=== PATIENT | female | born 1995 | race Caucasian/White ===

== ENCOUNTER → 2019-11-05 | Outpatient (CLI) | payer OTHER ==
[2019-11-05 13:23] LABS: HEMATOCRIT 37.9 % (37.0-47.0); MEAN CELL VOLUME 76.7 fl (81.0-99.0); MEAN CORPUSCULAR HGB 22.9 pg (27.0-31.0); MEAN CORPUSCULAR HGB CONC 29.8 g/dl (33.0-37.0); MEAN PLATELET VOLUME 8.6 fl (9.6-12.3); PLATELET COUNT AUTOMATED 612 10*3/uL (130-400); RED BLOOD COUNT 4.94 10*6/uL (4.10-5.10); RED CELL DISTRI WIDTH 14.4 % (0-14.5); WHITE BLOOD COUNT 16.1 10*3/uL (4.8-10.8)
[2019-11-05 13:39] LABS: PLATELET SUFFICIENCY HIGH (NORMAL); POLYCHROMASIA SLIGHT; TOTAL CELLS COUNTED 100 #CELLS
[2019-11-05 13:40] LABS: MICROCYTOSIS SLIGHT; TOXIC GRANULATION SLIGHT
[2019-11-06 12:09] LABS: HEP B CORE AB, IGM Negative (Negative); HEPATITIS B SURFACE AG Negative (Negative); HEPATITIS C VIRUS ANTIBODY <0.1 s/co (0.0-0.9)
== END | disposition home or self-care (01) ==
LOC: LAB 12:21
PROVIDERS: Family Medicine
DX: D72.829 Elevated white blood cell count, unspecified (principal)

== ENCOUNTER → 2019-12-07 | Outpatient (CLI) | payer OTHER | END | disposition home or self-care (01) | LOC: CT 15:40 | PROVIDERS: ATTEND Family Medicine | DX: R10.84 Generalized abdominal pain (principal) ==

== ENCOUNTER → 2019-12-31 | Outpatient (CLI) | payer OTHER | END | disposition home or self-care (01) | LOC: LAB 12:25 | PROVIDERS: ATTEND Internal Medicine Gastroenterology | DX: R19.7 Diarrhea, unspecified (principal) ==

== ENCOUNTER 2022-04-14 11:11 | Emergency (ER) | payer OTHER ==
[~2022-04-14] VITALS: Wt 88.5 kg
[2022-04-14 12:03] LABS: HEMATOCRIT 42.9 % (37.0-47.0); MEAN CELL VOLUME 92.1 fl (81.0-99.0); MEAN CORPUSCULAR HGB 30.9 pg (27.0-31.0); MEAN CORPUSCULAR HGB CONC 33.6 g/dl (33.0-37.0); MEAN PLATELET VOLUME 9.7 fl (9.6-12.3); PLATELET COUNT AUTOMATED 298 10*3/uL (130-400); RED BLOOD COUNT 4.66 10*6/uL (4.10-5.10); RED CELL DISTRI WIDTH 12.2 % (0-14.5); WHITE BLOOD COUNT 16.7 10*3/uL (4.8-10.8)
[2022-04-14 12:04] LABS: MANUAL DIFF REFLEX YES
[2022-04-14 12:14] LABS: ALKALINE PHOSPHATASE 55 U/L (46-116); BUN 6 mg/dl (9-23); CHLORIDE 102 mmol/L (98-107); LIPASE 47 U/L (12-53); SGPT/ALT 50 U/L (10-49); TOTAL PROTEIN 7.6 gm/dL (6.0-8.0)
[2022-04-14 12:34] LABS: TOTAL CELLS COUNTED 100 #CELLS
[2022-04-14 12:35] LABS: PLATELET SUFFICIENCY NORMAL (NORMAL)
[2022-04-14 13:01] LABS: BILIRUBIN 1+ (Negative); BLOOD Negative (Negative); CLARITY Cloudy (Clear); COLOR Dark Yellow (Yellow); GLUCOSE Negative (Negative); KETONE Trace (Negative); LEUKO ESTERASE 1+ (Negative); NITRITE Negative (Negative); PH 5.5 (4.5-8.0); SPECIFIC GRAVITY >= 1.030 (1.001-1.030)
[2022-04-14 13:28] LABS: BACTERIA 2+; EPITHELIAL CELLS 16-20; MUCOUS 1+
[2022-04-14] MEDS ORDERED: PERCOCET 5-3251 EACH PO (17:42)
[2022-04-14] MEDS ORDERED: Ondansetron4 MG PO (17:42)
== END 2022-04-14 17:57 | disposition home or self-care (01) ==
LOC: ED 11:11
PROVIDERS: Emergency Medicine; Student in an Organized Health Care Education/Training Program
DX: R11.2 Nausea with vomiting, unspecified (principal); N83.201 Unspecified ovarian cyst, right side

== ENCOUNTER 2023-04-24 16:28 | Emergency (ER) | payer OTHER ==
[~2023-04-24] VITALS: Ht 172.7 cm; Wt 81.6 kg
[~2023-04-24 16:28] MED LIST: Ondansetron4 MG PO; PERCOCET 5-3251 EACH PO
[2023-04-24] MEDS ORDERED: MERCAPTOPURINE50 M1 PO (16:52)
[2023-04-24 17:59] LABS: RBC TNTC rbc/hpf (0-2)
[2023-04-24 18:02] LABS: BILIRUBIN Negative (Negative); BLOOD 3+ (Negative); CLARITY Turbid (Clear); COLOR Orange (Yellow); GLUCOSE Negative (Negative); KETONE Negative (Negative); LEUKO ESTERASE 1+ (Negative); NITRITE Negative (Negative); SPECIFIC GRAVITY >= 1.030 (1.001-1.030); UROBILINOGEN 0.2 E.U./dl (0.0-1.0)
[2023-04-24 18:31] LABS: BASO % 0.3 % (0.0-1.0); EOS # 0.1 10*3/uL (0.0-0.4); EOS % 1.1 % (1.0-4.0); HEMATOCRIT 39.1 % (37.0-47.0); LYMPH # 1.6 10*3/uL (1.3-4.4); LYMPH % 14.3 % (27.0-41.0); MEAN CELL VOLUME 90.3 fl (81.0-99.0); MEAN CORPUSCULAR HGB 28.6 pg (27.0-31.0); MEAN CORPUSCULAR HGB CONC 31.7 g/dl (33.0-37.0); MEAN PLATELET VOLUME 9.5 fl (9.6-12.3); MONO # 0.6 10*3/uL (0.1-1.0); MONO % 5.2 % (3.0-9.0); NEUT % 78.5 % (47.0-73.0); PLATELET COUNT AUTOMATED 336 10*3/uL (130-400); RED BLOOD COUNT 4.33 10*6/uL (4.10-5.10); RED CELL DISTRI WIDTH 13.1 % (0-14.5); WHITE BLOOD COUNT 11.4 10*3/uL (4.8-10.8)
[2023-04-24 18:51] LABS: ALKALINE PHOSPHATASE 71 U/L (46-116); BUN 8 mg/dl (9-23); CHLORIDE 108 mmol/L (98-107); SGPT/ALT 59 U/L (5-49); TOTAL PROTEIN 7.2 gm/dL (6.0-8.0)
[2023-04-24] MEDS ORDERED: HYDROCODONE-AC1 EACH PO (19:44)
[2023-04-24] MEDS ORDERED: FLOMAX0.4 MG PO (19:44)
[2023-04-24] MEDS ORDERED: ONDANSETRON4 MG SL (19:44)
== END 2023-04-24 20:18 | disposition home or self-care (01) ==
LOC: ED 16:28
PROVIDERS: Nurse Practitioner Family
DX: N13.2 Hydronephrosis with renal and ureteral calculous obstruction (principal); R11.2 Nausea with vomiting, unspecified

== ENCOUNTER 2023-05-16 01:21 | Emergency (ER) | payer OTHER ==
[~2023-05-16] VITALS: Ht 172.7 cm; Wt 86.2 kg
[~2023-05-16 01:21] MED LIST changes: +CIPRO500 MG PO; +FLOMAX0.4 MG PO; +HYDROCODONE-AC1 EACH PO; +MERCAPTOPURINE50 M1 PO; +ONDANSETRON4 MG SL
[2023-05-16 02:14] LABS: BILIRUBIN Negative (Negative); BLOOD 1+ (Negative); CLARITY Cloudy (Clear); COLOR Yellow (Yellow); GLUCOSE Negative (Negative); KETONE Negative (Negative); LEUKO ESTERASE Negative (Negative); NITRITE Negative (Negative); PH 5.5 (4.5-8.0); SPECIFIC GRAVITY >= 1.030 (1.001-1.030); UROBILINOGEN 0.2 E.U./dl (0.0-1.0)
[2023-05-16 02:38] LABS: CALCIUM OXALATE CRYSTALS Trace; EPITHELIAL CELLS 21-30
[2023-05-16 02:39] LABS: BACTERIA TRACE
== END 2023-05-16 03:01 | disposition home or self-care (01) ==
LOC: ED 01:21
PROVIDERS: Internal Medicine
DX: N13.2 Hydronephrosis with renal and ureteral calculous obstruction (principal); N13.4 Hydroureter

== ENCOUNTER 2023-11-21 11:02 | Emergency (ER) | payer SELFPAY ==
[~2023-11-21] VITALS: Ht 175.2 cm; Wt 81.6 kg
[2023-11-21] MEDS ORDERED: CYCLOBENZAPRINE10 MG PO (11:20)
[2023-11-21] MEDS ORDERED: Acetaminophen/Oxycodone 5 MG/325 MG TABLET PO ONE (11:20)
== END 2023-11-21 11:33 | disposition home or self-care (01) ==
LOC: ED 11:02
DX: S16.1XXA Strain of muscle, fascia and tendon at neck level, initial encounter (principal); Z87.442 Personal history of urinary calculi; X58.XXXA Exposure to other specified factors, initial encounter; Y93.89 Activity, other specified; Y92.89 Other specified places as the place of occurrence of the external cause; Y99.8 Other external cause status

== ENCOUNTER 2023-11-30 16:36 | Emergency (ER) | payer SELFPAY ==
[~2023-11-30] VITALS: Ht 172.7 cm; Wt 86.2 kg
[~2023-11-30 16:36] MED LIST changes: +CYCLOBENZAPRINE10 MG PO
[2023-11-30 17:51] LABS: BILIRUBIN Negative (Negative); BLOOD 1+ (Negative); CLARITY Clear (Clear); COLOR Yellow (Yellow); GLUCOSE Negative (Negative); KETONE Trace (Negative); LEUKO ESTERASE Trace (Negative); NITRITE Negative (Negative); PH 5.5 (4.5-8.0); SPECIFIC GRAVITY 1.025 (1.001-1.030); UROBILINOGEN 0.2 E.U./dl (0.0-1.0)
[2023-11-30 17:59] LABS: BACTERIA 1+
[2023-11-30] MEDS ORDERED: PYRIDIUM200 M1 PO (18:18)
[2023-11-30] MEDS ORDERED: CEPHALEXIN500 M1 PO (18:18)
[2023-11-30] MEDS ORDERED: CEPHALEXIN 500 MG CAP PO ONE (18:20)
[2023-11-30] MEDS ORDERED: Phenazopyridine Hydrochlorid2 100 MG TAB PO ONE (18:20)
== END 2023-11-30 18:32 | disposition home or self-care (01) ==
LOC: ED 16:36
PROVIDERS: Nurse Practitioner Family
DX: N39.0 Urinary tract infection, site not specified (principal); Z87.442 Personal history of urinary calculi

== ENCOUNTER 2023-12-12 19:46 | Emergency (ER) | payer SELFPAY ==
[~2023-12-12] VITALS: Ht 180.3 cm; Wt 106.6 kg
[~2023-12-12 19:46] MED LIST changes: +CEPHALEXIN500 M1 PO; +PYRIDIUM200 M1 PO
[2023-12-12] MEDS ORDERED: Ondansetron Hydrochloride 4 MG/2 ML VIAL IV ONE (20:05)
[2023-12-12] MEDS ORDERED: MORPHINE Sulfate 2 MG/ML SYR IV ONE (20:05)
[2023-12-12] MEDS ORDERED: SODIUM CHLORIDE 0.9% 1,000 ML IV ONE (20:05)
[2023-12-12] MEDS ORDERED: IOHEXOL 300 MG/ML 100 ML VIAL IV ONE (20:10)
[2023-12-12 20:30] LABS: BASO # 0.1 10*3/uL (0.0-0.1); BASO % 0.4 % (0.0-1.0); EOS # 0.4 10*3/uL (0.0-0.4); EOS % 2.8 % (1.0-4.0); HEMATOCRIT 36.9 % (37.0-47.0); LYMPH # 2.3 10*3/uL (1.3-4.4); LYMPH % 16.4 % (27.0-41.0); MEAN CELL VOLUME 87.2 fl (81.0-99.0); MEAN CORPUSCULAR HGB 28.1 pg (27.0-31.0); MEAN CORPUSCULAR HGB CONC 32.2 g/dl (33.0-37.0); MONO # 0.6 10*3/uL (0.1-1.0); MONO % 4.2 % (3.0-9.0); NEUT # 10.4 10*3/uL (2.3-7.9); NEUT % 74.5 % (47.0-73.0); PLATELET COUNT AUTOMATED 349 10*3/uL (130-400); RED BLOOD COUNT 4.23 10*6/uL (4.10-5.10); RED CELL DISTRI WIDTH 12.7 % (0-14.5); WHITE BLOOD COUNT 13.9 10*3/uL (4.8-10.8)
[2023-12-12 21:04] LABS: ALKALINE PHOSPHATASE 82 U/L (46-116); BUN 10 mg/dl (9-23); CHLORIDE 104 mmol/L (98-107); LIPASE 44 U/L (12-53); SGPT/ALT 48 U/L (5-49); TOTAL PROTEIN 7.3 gm/dL (6.0-8.0)
[2023-12-12 21:14] LABS: BILIRUBIN Negative (Negative); BLOOD Negative (Negative); CLARITY Clear (Clear); COLOR Yellow (Yellow); GLUCOSE Negative (Negative); KETONE Negative (Negative); LEUKO ESTERASE Negative (Negative); NITRITE Negative (Negative); SPECIFIC GRAVITY 1.025 (1.001-1.030); UROBILINOGEN 0.2 E.U./dl (0.0-1.0)
[2023-12-12] MEDS ORDERED: POTASSIUM CHLORIDE 20 MEQ TAB PO ONE (21:25)
[2023-12-12 21:31] LABS: BACTERIA TRACE; EPITHELIAL CELLS 16-20; WBC 0-2 wbc/hpf (0-5)
[2023-12-13] MEDS ORDERED: HYDROmorphONE Hydrochloride 0.5 MG/0.5 ML SYRINGE IV ONE (00:05)
== END 2023-12-13 00:13 | disposition home or self-care (01) ==
LOC: ED 19:46
PROVIDERS: Physician Assistant Medical
DX: R14.1 Gas pain (principal); E87.6 Hypokalemia; D72.829 Elevated white blood cell count, unspecified; Z87.442 Personal history of urinary calculi

== ENCOUNTER 2024-03-09 07:30 | Inpatient (IN) | payer SELFPAY ==
[2024-03-09] VITALS (7 sets, daily range): BP systolic 87–111; BP diastolic 49–70
[~2024-03-09] VITALS: Ht 172.7 cm; Wt 89.8 kg
[2024-03-09] MEDS ORDERED: Lactated Ringer's Solution 1,000 ML IV SCH ×2 (07:55→10:25)
[2024-03-09] MEDS ORDERED: IOHEXOL 300 MG/ML 100 ML VIAL IV ONE (08:20)
[2024-03-09 08:22] LABS: HEMATOCRIT 49.8 % (37.0-47.0); MEAN CELL VOLUME 80.8 fl (81.0-99.0); MEAN CORPUSCULAR HGB 26.9 pg (27.0-31.0); MEAN CORPUSCULAR HGB CONC 33.3 g/dl (33.0-37.0); MEAN PLATELET VOLUME 9.8 fl (9.6-12.3); PLATELET COUNT AUTOMATED 547 10*3/uL (130-400); RED BLOOD COUNT 6.16 10*6/uL (4.10-5.10); RED CELL DISTRI WIDTH 13.2 % (0-14.5); WHITE BLOOD COUNT 21.6 10*3/uL (4.8-10.8)
[2024-03-09 08:24] LABS: MANUAL DIFF REFLEX YES
[2024-03-09] MEDS ORDERED: IOHEXOL 300 MG/ML 100 ML VIAL ONE (08:39)
[2024-03-09 08:56] LABS: ATYPICAL LYMPHS 2 % (0-0); TOTAL CELLS COUNTED 100 #CELLS
[2024-03-09 08:57] LABS: PLATELET SUFFICIENCY HIGH (NORMAL); TOXIC GRANULATION SLIGHT; VACUOLATION OF NEUTROPHILS SLIGHT
[2024-03-09 09:03] LABS: POTASSIUM 4.3 mmol/L (3.4-5.1); TOTAL PROTEIN 9.9 gm/dL (6.0-8.0)
[2024-03-09] MEDS ORDERED: BISACODYL 10 MG SUPP R PRN (11:40)
[2024-03-09] MEDS ORDERED: Ondansetron Hydrochloride 4 MG/2 ML VIAL IV PRN (11:40)
[2024-03-09] MEDS ORDERED: ACETAMINOPHEN 650 MG SUPP R PRN (11:40)
[2024-03-09] MEDS ORDERED: Magnesium Hydroxide 30 ML UDC PO PRN (11:40)
[2024-03-09] MEDS ORDERED: BISACODYL 5 MG TAB PO PRN (11:40)
[2024-03-09] MEDS ORDERED: ACETAMINOPHEN 325 MG TAB PO PRN (11:40)
[2024-03-09] MEDS ORDERED: Dicyclomine Hydrochloride 10 MG CAP PO PRN (14:55)
[2024-03-09 18:18] LABS: POTASSIUM 3.4 mmol/L (3.4-5.1)
[2024-03-10] VITALS: BP 94/64
[2024-03-10] MEDS ORDERED: Acetaminophen/Hydrocodone 5 MG/325 MG TABLET PO PRN ×2 (00:35→05:08)
[2024-03-10 01:11] LABS: POTASSIUM 3.5 mmol/L (3.4-5.1)
[2024-03-10 05:05] VITALS: BP 106/64
[2024-03-10 06:14] LABS: FREE T4 1.84 ng/dl (0.89-1.76); POTASSIUM 3.6 mmol/L (3.4-5.1); TOTAL PROTEIN 9.5 gm/dL (6.0-8.0)
[2024-03-10 06:21] LABS: HEMATOCRIT 47.4 % (37.0-47.0); MEAN CELL VOLUME 79.5 fl (81.0-99.0); MEAN PLATELET VOLUME 10.1 fl (9.6-12.3); PLATELET COUNT AUTOMATED 560 10*3/uL (130-400); RED BLOOD COUNT 5.96 10*6/uL (4.10-5.10); RED CELL DISTRI WIDTH 13.3 % (0-14.5)
[2024-03-10 06:22] LABS: MANUAL DIFF REFLEX YES
[2024-03-10 06:35] LABS: VITAMIN D, 25-HYDROXY 12.4 ng/mL (30-100)
[2024-03-10 07:32] LABS: MICROCYTOSIS SLIGHT; TOTAL CELLS COUNTED 100 #CELLS; TOXIC GRANULATION SLIGHT; VACUOLATION OF NEUTROPHILS SLIGHT
[2024-03-10 07:33] LABS: OVALOCYTES FEW; PLATELET SUFFICIENCY HIGH (NORMAL)
[2024-03-10 08:00] VITALS: BP 102/57
[2024-03-10] MEDS ORDERED: DEXTROSE 5% IN LACTATED RINGER 1,000 ML IV SCH (08:35)
[2024-03-10 09:31] LABS: POTASSIUM 3.5 mmol/L (3.4-5.1)
[2024-03-10] MEDS ORDERED: Lactated Ringer's Solution 1,000 ML IV ONE (10:00)
[2024-03-10] MEDS ORDERED: Enoxaparin Sodium 30 MG/0.3 ML SYR SC SCH (10:00)
[2024-03-10] MEDS ORDERED: Cyclobenzaprine Hydrochlorid 10 MG TAB PO ONE (10:05)
[2024-03-10 12:00] VITALS: BP 90/68
[2024-03-10 16:00] VITALS: BP 104/88
[2024-03-10] MEDS ORDERED: SODIUM BICARBONATE 75 MEQ in SODIUM CHLORIDE 0.45% 1,000 ML IV ONE (18:55)
[2024-03-10 18:57] LABS: POTASSIUM 3.1 mmol/L (3.4-5.1)
[2024-03-10 20:00] VITALS: BP 102/61
[2024-03-11] VITALS: BP 106/64
[2024-03-11 00:37] LABS: POTASSIUM 3.1 mmol/L (3.4-5.1)
[2024-03-11] MEDS ORDERED: POTASSIUM CHLORIDE 20 MEQ TAB PO ONE ×3 (04:30→19:15)
[2024-03-11] MEDS ORDERED: SODIUM BICARBONATE 75 MEQ in SODIUM CHLORIDE 0.45% 1,000 ML IV ONE (06:00)
[2024-03-11 06:11] LABS: POTASSIUM 2.9 mmol/L (3.4-5.1)
[2024-03-11 07:31] LABS: HEMATOCRIT 41.4 % (37.0-47.0); MEAN CELL VOLUME 79.9 fl (81.0-99.0); MEAN CORPUSCULAR HGB 27.4 pg (27.0-31.0); MEAN CORPUSCULAR HGB CONC 34.3 g/dl (33.0-37.0); MEAN PLATELET VOLUME 10.5 fl (9.6-12.3); PLATELET COUNT AUTOMATED 490 10*3/uL (130-400); RED BLOOD COUNT 5.18 10*6/uL (4.10-5.10); WHITE BLOOD COUNT 17.2 10*3/uL (4.8-10.8)
[2024-03-11 07:32] LABS: MANUAL DIFF REFLEX YES
[2024-03-11 08:00] VITALS: BP 97/64
[2024-03-11 08:11] LABS: TOTAL CELLS COUNTED 100 #CELLS
[2024-03-11 08:12] LABS: MICROCYTOSIS SLIGHT; OVALOCYTES FEW; PLATELET SUFFICIENCY HIGH (NORMAL); POLYCHROMASIA SLIGHT
[2024-03-11] MEDS ORDERED: Enoxaparin Sodium 40 MG/0.4 ML SYR SC SCH (10:00)
[2024-03-11] MEDS ORDERED: Cyclobenzaprine Hydrochlorid 10 MG TAB PO ONE (10:05)
[2024-03-11 12:00] VITALS: BP 115/63
[2024-03-11 12:26] LABS: POTASSIUM 3.3 mmol/L (3.4-5.1)
[2024-03-11 16:00] VITALS: BP 110/71
[2024-03-11 18:21] LABS: BUN 30 mg/dl (9-23); CHLORIDE 93 mmol/L (98-107); POTASSIUM 2.9 mmol/L (3.4-5.1)
[2024-03-11 20:00] VITALS: BP 111/68
[2024-03-12] VITALS: BP 112/64
[2024-03-12 00:30] LABS: BUN 26 mg/dl (9-23); CHLORIDE 93 mmol/L (98-107); POTASSIUM 2.9 mmol/L (3.4-5.1)
[2024-03-12] MEDS ORDERED: POTASSIUM CHLORIDE 20 MEQ TAB PO ONE ×2 (03:05→12:15)
[2024-03-12 06:11] LABS: HEMATOCRIT 40.7 % (37.0-47.0); MEAN CELL VOLUME 81.9 fl (81.0-99.0); MEAN CORPUSCULAR HGB 27.2 pg (27.0-31.0); MEAN CORPUSCULAR HGB CONC 33.2 g/dl (33.0-37.0); MEAN PLATELET VOLUME 10.2 fl (9.6-12.3); PLATELET COUNT AUTOMATED 438 10*3/uL (130-400); RED BLOOD COUNT 4.97 10*6/uL (4.10-5.10)
[2024-03-12 06:20] LABS: MANUAL DIFF REFLEX YES
[2024-03-12 06:36] LABS: BUN 23 mg/dl (9-23); CHLORIDE 93 mmol/L (98-107); POTASSIUM 3.2 mmol/L (3.4-5.1)
[2024-03-12 07:12] LABS: ATYPICAL LYMPHS 1 % (0-0); TOTAL CELLS COUNTED 100 #CELLS
[2024-03-12 07:13] LABS: PLATELET SUFFICIENCY HIGH (NORMAL)
[2024-03-12 08:00] VITALS: BP 94/62
[2024-03-12 12:00] VITALS: BP 101/54
[2024-03-12] MEDS ORDERED: Lactated Ringer's Solution 1,000 ML IV SCH (12:25)
[2024-03-12 16:00] VITALS: BP 104/57
[2024-03-12 20:00] VITALS: BP 104/59; BP 92/55
[2024-03-13] MEDS ORDERED: Loperamide Hydrochloride 2 MG CAP PO ONE (00:10)
[2024-03-13 00:49] VITALS: BP 102/56
[2024-03-13 06:18] LABS: CHLORIDE 98 mmol/L (98-107); POTASSIUM 3.2 mmol/L (3.4-5.1)
[2024-03-13 06:30] LABS: BUN 8 mg/dl (9-23)
[2024-03-13] MEDS ORDERED: POTASSIUM CHLORIDE 20 MEQ TAB PO ONE (07:45)
[2024-03-13 08:00] VITALS: BP 100/50
[2024-03-13] MEDS ORDERED: KLOR-CON M2020 ME1 PO (09:13)
[2024-03-13] MEDS ORDERED: DICYCLOMINE HYD10 MG PO (09:16)
[2024-03-13] MEDS ORDERED: K-TAB20 MEQ PO (11:36)
[2024-03-13] MEDS ORDERED: POTASSIUM CHLORIDE 20 MEQ in Lactated Ringer's Solution 1,000 ML IV SCH (12:00)
== END 2024-03-13 12:05 | disposition left against medical advice (07) | DRG 871 ==
LOC: ED 07:30 → EDHOLD 11:19 → 4E 11:19
PROVIDERS: Emergency Medicine; Internal Medicine; Registered Nurse; ADMIT Family Medicine; ATTEND Family Medicine
DX: A41.89 Other specified sepsis (principal); N17.0 Acute kidney failure with tubular necrosis; U07.1 COVID-19; E87.1 Hypo-osmolality and hyponatremia; K50.90 Crohn's disease, unspecified, without complications; E87.20 Acidosis, unspecified; E86.0 Dehydration; D75.1 Secondary polycythemia; R73.9 Hyperglycemia, unspecified; R74.01 Elevation of levels of liver transaminase levels; I95.9 Hypotension, unspecified; D75.839 Thrombocytosis, unspecified; Z53.29 Procedure and treatment not carried out because of patient's decision for other reasons; R65.20 Severe sepsis without septic shock; E87.6 Hypokalemia; Z87.891 Personal history of nicotine dependence; Z83.3 Family history of diabetes mellitus; Z80.3 Family history of malignant neoplasm of breast; Z93.2 Ileostomy status; Z87.442 Personal history of urinary calculi

== ENCOUNTER → 2024-07-27 | Outpatient (CLI) | payer OTHER ==
[~2024-07-27] MED LIST changes: +DICYCLOMINE HYD10 MG PO; +K-TAB20 MEQ PO; +KLOR-CON M2020 ME1 PO
== END | disposition home or self-care (01) ==
LOC: LAB 12:10
PROVIDERS: ATTEND Obstetrics & Gynecology Reproductive Endocrinology
DX: Z31.49 Encounter for other procreative investigation and testing (principal)

== ENCOUNTER 2024-08-04 07:16 | Emergency (ER) | payer OTHER ==
[~2024-08-04] VITALS: Ht 172.7 cm; Wt 81.6 kg
[2024-08-04] MEDS ORDERED: MEDROXYPROGESTE10 M1 PO (07:29)
[2024-08-04] MEDS ORDERED: Acetaminophen/Oxycodone 5 MG/325 MG TABLET PO ONE (07:40)
[2024-08-04] MEDS ORDERED: MELOXICAM15 MG PO (07:44)
== END 2024-08-04 08:10 | disposition home or self-care (01) ==
LOC: ED 07:16
DX: S90.02XA Contusion of left ankle, initial encounter (principal); Z79.899 Other long term (current) drug therapy; Z98.890 Other specified postprocedural states; Z87.891 Personal history of nicotine dependence; W22.8XXA Striking against or struck by other objects, initial encounter; Y93.89 Activity, other specified; Y92.89 Other specified places as the place of occurrence of the external cause; Y99.8 Other external cause status

== ENCOUNTER → 2024-08-13 | Outpatient (CLI) | payer OTHER ==
[~2024-08-13] MED LIST changes: +MEDROXYPROGESTE10 M1 PO; +MELOXICAM15 MG PO
== END | disposition home or self-care (01) ==
LOC: US 13:00
PROVIDERS: ATTEND Family Medicine
DX: R60.0 Localized edema (principal)